=== PATIENT | female | born 1945 | race Caucasian/White ===

== ENCOUNTER 2020-06-15 21:44 | Inpatient (IN) | payer SELFPAY ==
[~2020-06-15] VITALS: Ht 149.9 cm; Wt 50.9 kg
[2020-06-15 21:54] VITALS: Ht 149.9 cm; Wt 50.9 kg
[2020-06-16 05:12] LABS: ALKALINE PHOSPHATASE 155 U/L (46-116); ALT/SGPT 168 U/L (14-59); AMYLASE 70 U/L (25-115); AST/SGOT 242 U/L (15-37); BILIRUBIN TOTAL 1.16 mg/dL (0.20-1.00); CALCIUM 7.9 mg/dL (8.5-10.1); CARBON DIOXIDE 13.8 mmol/L (21-32); CHLORIDE SERUM 102 mmol/L (98-107); GLUCOSE SERUM 78 mg/dL (74-106); LIPASE 57 IU/L (73-393); SODIUM SERUM 135 mmol/L (136-145); TOTAL PROTEIN, SERUM 7.5 g/dL (6.4-8.2)
[2020-06-16 05:13] LABS: ALBUMIN 2.9 g/dL (3.4-5.0)
[2020-06-16 05:14] LABS: POTASSIUM SERUM 6.9 mmol/L (3.5-5.1)
[2020-06-16 05:15] LABS: CREATININE SERUM 4.6 mg/dL (0.6-1.0)
[2020-06-16 05:39] LABS: BASOPHIL % 0.1 % (0.2-1.3)
[2020-06-16 05:40] LABS: PLATELET COUNT 79 x10^3mcL (179-408); RED CELL DISTRIBUTION WIDTH 15.2 % (12.3-17.7)
[2020-06-16 05:59] LABS: UA SPECIFIC GRAVITY >=1.030 (1.005-1.035); microscopic required? YES; urine erythrocyte 3+ (NEGATIVE)
[2020-06-16] MEDS ORDERED: METFORMIN850 M1 PO (06:58)
[2020-06-16] MEDS ORDERED: LOSARTAN POTASS50 M1 PO (06:58)
[2020-06-16 11:47] LABS: CARBON DIOXIDE 10.9 mmol/L (21-32); CHLORIDE SERUM 118 mmol/L (98-107); CREATININE SERUM 2.9 mg/dL (0.6-1.0); SODIUM SERUM 146 mmol/L (136-145)
[2020-06-16 11:52] LABS: CALCIUM 5.1 mg/dL (8.5-10.1); GLUCOSE SERUM 54 mg/dL (74-106)
[2020-06-16 16:44] LABS: FREE T4 1.36 ng/dL (0.76-1.46); FREE THYROXINE INDEX 1.9 ug/dL (1.4-4.5); T4(THYROXINE) 4.9 ug/dL (4.7-13.3)
[2020-06-16 17:40] LABS: CHOLESTEROL/HDL RATIO 7.8
[2020-06-16 20:19] LABS: T3 TOTAL 0.52 ng/mL
[2020-06-17 02:54] VITALS: BP 108/44
[2020-06-17 04:20] VITALS: BP 111/44
[2020-06-17 08:28] VITALS: BP 136/58
[2020-06-17 08:38] LABS: CALCIUM 7.4 mg/dL (8.5-10.1); CARBON DIOXIDE 17.2 mmol/L (21-32); CHLORIDE SERUM 107 mmol/L (98-107); GLUCOSE SERUM 183 mg/dL (74-106); MAGNESIUM 1.6 mg/dL (1.8-2.4); POTASSIUM SERUM 5.4 mmol/L (3.5-5.1); SODIUM SERUM 142 mmol/L (136-145)
[2020-06-17 09:26] LABS: CREATININE SERUM 4.7 mg/dL (0.6-1.0)
[2020-06-17 10:40] LABS: RED CELL DISTRIBUTION WIDTH 14.9 % (12.3-17.7)
[2020-06-17 10:41] LABS: PLATELET COUNT 38 x10^3mcL (179-408)
[2020-06-17 12:00] VITALS: BP 127/60
[2020-06-17 13:24] LABS: BAND NEUTROPHIL 16 % (0-10); METAMYELOCTE 21 % (0-2); MONOCYTE 20 % (0-7); MYELOCYTE 2 % (0-2); SEGMENTED NEUTROPHILS 36 % (37-75); rbc morphology (normal/abnorm) ABNORMAL (NORMAL)
[2020-06-17 13:25] LABS: PLATELET MORPHOLOGY PLATELETS DECREASED
[2020-06-17 16:20] VITALS: BP 150/99
[2020-06-17 21:36] VITALS: BP 98/57
[2020-06-18 05:28] VITALS: BP 114/52
[2020-06-18 08:37] LABS: CALCIUM 7.9 mg/dL (8.5-10.1); CHLORIDE SERUM 107 mmol/L (98-107); GLUCOSE SERUM 116 mg/dL (74-106); SODIUM SERUM 146 mmol/L (136-145)
[2020-06-18 08:55] VITALS: BP 108/54
[2020-06-18 09:53] LABS: PLATELET COUNT 26 x10^3mcL (179-408); RED CELL DISTRIBUTION WIDTH 14.7 % (12.3-17.7)
[2020-06-18 13:24] VITALS: BP 111/59
[2020-06-18 16:45] VITALS: BP 118/61
[2020-06-18 18:04] LABS: BAND NEUTROPHIL 10 % (0-10); BASOPHIL 0 % (0-2); MONOCYTE 2 % (0-7); SEGMENTED NEUTROPHILS 86 % (37-75)
[2020-06-18 18:06] LABS: rbc morphology (normal/abnorm) NORMAL (NORMAL)
[2020-06-18 21:41] VITALS: BP 135/52
[2020-06-19 06:27] VITALS: BP 160/63
[2020-06-19 07:33] LABS: CALCIUM 8.7 mg/dL (8.5-10.1); CARBON DIOXIDE 21.6 mmol/L (21-32); CHLORIDE SERUM 104 mmol/L (98-107); GLUCOSE SERUM 63 mg/dL (74-106); POTASSIUM SERUM 4.8 mmol/L (3.5-5.1); SODIUM SERUM 143 mmol/L (136-145)
[2020-06-19 07:34] LABS: MAGNESIUM 2.4 mg/dL (1.8-2.4); PHOSPHOROUS 4.3 mg/dL (2.5-4.9)
[2020-06-19 07:37] LABS: CREATININE SERUM 4.8 mg/dL (0.6-1.0)
[2020-06-19 08:16] VITALS: BP 121/56
[2020-06-19 08:17] LABS: RED CELL DISTRIBUTION WIDTH 14.9 % (12.3-17.7)
[2020-06-19 08:18] LABS: PLATELET COUNT 17 x10^3mcL (179-408)
[2020-06-19 12:15] VITALS: BP 122/50
[2020-06-19 16:33] LABS: BAND NEUTROPHIL 20 % (0-10); BASOPHIL 0 % (0-2); SEGMENTED NEUTROPHILS 77 % (37-75)
[2020-06-19 16:34] LABS: PLATELET MORPHOLOGY PLATELETS DECREASED; rbc morphology (normal/abnorm) NORMAL (NORMAL)
[2020-06-19 16:42] VITALS: BP 131/51
[2020-06-19 22:12] VITALS: BP 116/52
[2020-06-20 06:12] VITALS: BP 121/61
[2020-06-20 06:16] VITALS: BP 108/52
[2020-06-20 08:45] VITALS: BP 130/57
[2020-06-20 09:02] LABS: CALCIUM 8.1 mg/dL (8.5-10.1); CARBON DIOXIDE 22.6 mmol/L (21-32); CHLORIDE SERUM 97 mmol/L (98-107); GLUCOSE SERUM 94 mg/dL (74-106); POTASSIUM SERUM 4.3 mmol/L (3.5-5.1); SODIUM SERUM 134 mmol/L (136-145)
[2020-06-20 09:38] LABS: CREATININE SERUM 4.8 mg/dL (0.6-1.0)
[2020-06-20 11:51] LABS: RED CELL DISTRIBUTION WIDTH 14.6 % (12.3-17.7)
[2020-06-20 11:52] LABS: PLATELET COUNT 24 x10^3mcL (179-408)
[2020-06-20 12:26] VITALS: BP 101/46
[2020-06-20 15:50] LABS: BAND NEUTROPHIL 3 % (0-10); BASOPHIL 0 % (0-2); MONOCYTE 2 % (0-7); SEGMENTED NEUTROPHILS 92 % (37-75); rbc morphology (normal/abnorm) ABNORMAL (NORMAL)
[2020-06-20 16:19] VITALS: BP 116/52
[2020-06-20 21:11] VITALS: BP 143/64
[2020-06-21 06:45] VITALS: BP 161/85
[2020-06-21 08:39] VITALS: BP 170/79
[2020-06-21 10:27] LABS: RED CELL DISTRIBUTION WIDTH 14.5 % (12.3-17.7)
[2020-06-21 10:35] LABS: CALCIUM 7.7 mg/dL (8.5-10.1); CARBON DIOXIDE 21.9 mmol/L (21-32); CHLORIDE SERUM 97 mmol/L (98-107); GLUCOSE SERUM 102 mg/dL (74-106); SODIUM SERUM 135 mmol/L (136-145)
[2020-06-21 10:40] LABS: PLATELET COUNT 58 x10^3mcL (179-408)
[2020-06-21 10:41] LABS: CREATININE SERUM 4.9 mg/dL (0.6-1.0)
[2020-06-21 10:57] VITALS: BP 151/71
[2020-06-21 11:03] LABS: BILIRUBIN DIRECT 0.65 mg/dL (0.0-0.2); BILIRUBIN TOTAL 1.1 mg/dL (0.20-1.00)
[2020-06-21 11:11] LABS: ALBUMIN 1.7 g/dL (3.4-5.0); TOTAL PROTEIN, SERUM 5.1 g/dL (6.4-8.2)
[2020-06-21 13:46] LABS: BAND NEUTROPHIL 3 % (0-10); MONOCYTE 3 % (0-7); PLATELET MORPHOLOGY PLATELETS DECREASED; SEGMENTED NEUTROPHILS 89 % (37-75); rbc morphology (normal/abnorm) ABNORMAL (NORMAL)
[2020-06-21 21:51] VITALS: BP 107/54
[2020-06-22 06:38] VITALS: BP 117/61
[2020-06-22 07:52] LABS: RED CELL DISTRIBUTION WIDTH 14.6 % (12.3-17.7)
[2020-06-22 07:56] LABS: PLATELET COUNT 49 x10^3mcL (179-408)
[2020-06-22 08:54] VITALS: BP 126/45
[2020-06-22 08:54] LABS: CALCIUM 7.3 mg/dL (8.5-10.1); CARBON DIOXIDE 21.2 mmol/L (21-32); CHLORIDE SERUM 100 mmol/L (98-107); GLUCOSE SERUM 75 mg/dL (74-106); PHOSPHOROUS 6.8 mg/dL (2.5-4.9); POTASSIUM SERUM 4.1 mmol/L (3.5-5.1); SODIUM SERUM 140 mmol/L (136-145)
[2020-06-22 08:58] LABS: CREATININE SERUM 5.1 mg/dL (0.6-1.0)
[2020-06-22 12:39] VITALS: BP 118/49
[2020-06-22 12:49] LABS: BAND NEUTROPHIL 6 % (0-10); METAMYELOCTE 1 % (0-2); MONOCYTE 3 % (0-7); SEGMENTED NEUTROPHILS 85 % (37-75); rbc morphology (normal/abnorm) ABNORMAL (NORMAL)
[2020-06-22 12:50] LABS: PLATELET MORPHOLOGY PLATELETS DECREASED
[2020-06-22 17:11] VITALS: BP 95/44
[2020-06-22 21:10] VITALS: BP 122/47
[2020-06-23 05:13] VITALS: BP 114/42
[2020-06-23 08:34] VITALS: BP 150/57
[2020-06-23 09:07] LABS: CALCIUM 7.5 mg/dL (8.5-10.1); CARBON DIOXIDE 27.4 mmol/L (21-32); CHLORIDE SERUM 101 mmol/L (98-107); CREATININE SERUM 3.5 mg/dL (0.6-1.0); GLUCOSE SERUM 89 mg/dL (74-106); POTASSIUM SERUM 3.2 mmol/L (3.5-5.1); SODIUM SERUM 139 mmol/L (136-145)
[2020-06-23 10:56] LABS: BASOPHIL % 0.1 % (0.2-1.3)
[2020-06-23 10:58] LABS: RED CELL DISTRIBUTION WIDTH 14.5 % (12.3-17.7)
[2020-06-23 11:30] LABS: PLATELET COUNT 49 x10^3mcL (179-408)
[2020-06-23 12:51] VITALS: BP 131/51
[2020-06-23 16:39] VITALS: BP 140/51
[2020-06-23 21:07] VITALS: BP 123/39
[2020-06-24 06:10] VITALS: BP 104/44
[2020-06-24 08:18] LABS: BASOPHIL % 0.2 % (0.2-1.3); RED CELL DISTRIBUTION WIDTH 14.5 % (12.3-17.7)
[2020-06-24 08:36] LABS: CALCIUM 7.2 mg/dL (8.5-10.1); CHLORIDE SERUM 99 mmol/L (98-107); CREATININE SERUM 2.7 mg/dL (0.6-1.0); GLUCOSE SERUM 74 mg/dL (74-106); SODIUM SERUM 135 mmol/L (136-145)
[2020-06-24 08:52] VITALS: BP 122/77
[2020-06-24 09:07] LABS: PLATELET COUNT 46 x10^3mcL (179-408)
[2020-06-24 09:24] LABS: POTASSIUM SERUM 2.9 mmol/L (3.5-5.1)
[2020-06-24 12:02] VITALS: BP 103/59
[2020-06-24 17:05] VITALS: BP 132/44
[2020-06-24 21:03] VITALS: BP 121/42
[2020-06-25 05:20] VITALS: BP 119/47
[2020-06-25 07:50] LABS: BASOPHIL % 0.3 % (0.2-1.3); RED CELL DISTRIBUTION WIDTH 14.5 % (12.3-17.7)
[2020-06-25 08:37] VITALS: BP 131/47
[2020-06-25 08:37] LABS: PLATELET COUNT 67 x10^3mcL (179-408)
[2020-06-25 08:45] LABS: CALCIUM 6.9 mg/dL (8.5-10.1); CARBON DIOXIDE 27.1 mmol/L (21-32); CHLORIDE SERUM 107 mmol/L (98-107); CREATININE SERUM 3.4 mg/dL (0.6-1.0); GLUCOSE SERUM 69 mg/dL (74-106); POTASSIUM SERUM 3.1 mmol/L (3.5-5.1); SODIUM SERUM 146 mmol/L (136-145)
[2020-06-25 12:26] VITALS: BP 137/49
[2020-06-25 16:44] VITALS: BP 132/50
[2020-06-25 20:58] VITALS: BP 115/43
[2020-06-26 05:37] VITALS: BP 146/75
[2020-06-26 08:40] VITALS: BP 141/52
[2020-06-26 10:04] LABS: BASOPHIL % 0.2 % (0.2-1.3); RED CELL DISTRIBUTION WIDTH 14.1 % (12.3-17.7)
[2020-06-26 10:08] LABS: PLATELET COUNT 92 x10^3mcL (179-408)
[2020-06-26 10:12] LABS: CARBON DIOXIDE 29.7 mmol/L (21-32); CHLORIDE SERUM 99 mmol/L (98-107); CREATININE SERUM 2.7 mg/dL (0.6-1.0); GLUCOSE SERUM 78 mg/dL (74-106); SODIUM SERUM 135 mmol/L (136-145)
[2020-06-26 12:39] VITALS: BP 131/51
[2020-06-26 16:16] VITALS: BP 132/47
[2020-06-26 20:23] VITALS: BP 137/50
[2020-06-27 05:33] VITALS: BP 122/50
[2020-06-27 07:43] LABS: BASOPHIL % 0.3 % (0.2-1.3); RED CELL DISTRIBUTION WIDTH 14.4 % (12.3-17.7)
[2020-06-27 08:18] LABS: CARBON DIOXIDE 26.5 mmol/L (21-32); CHLORIDE SERUM 106 mmol/L (98-107); CREATININE SERUM 2.9 mg/dL (0.6-1.0); GLUCOSE SERUM 62 mg/dL (74-106); POTASSIUM SERUM 3.7 mmol/L (3.5-5.1); SODIUM SERUM 142 mmol/L (136-145)
[2020-06-27 08:43] LABS: PLATELET COUNT 125 x10^3mcL (179-408)
[2020-06-27 09:30] VITALS: BP 128/38
[2020-06-27 12:19] VITALS: BP 118/73
[2020-06-27 17:14] VITALS: BP 160/42
[2020-06-27 21:37] VITALS: BP 150/53
[2020-06-28 05:58] VITALS: BP 149/50
[2020-06-28 07:32] LABS: BASOPHIL % 0.7 % (0.2-1.3); PLATELET COUNT 175 x10^3mcL (179-408)
[2020-06-28 08:00] LABS: CALCIUM 7.4 mg/dL (8.5-10.1); CHLORIDE SERUM 106 mmol/L (98-107); CREATININE SERUM 2.9 mg/dL (0.6-1.0); GLUCOSE SERUM 58 mg/dL (74-106); POTASSIUM SERUM 3.6 mmol/L (3.5-5.1); SODIUM SERUM 141 mmol/L (136-145)
[2020-06-28 08:52] VITALS: BP 146/56
[2020-06-28 12:54] VITALS: BP 137/59
[2020-06-28 16:29] VITALS: BP 140/57
[2020-06-28 20:44] VITALS: BP 133/46
[2020-06-29 05:11] VITALS: BP 134/46
[2020-06-29 07:45] LABS: BASOPHIL % 0.9 % (0.2-1.3); PLATELET COUNT 177 x10^3mcL (179-408); RED CELL DISTRIBUTION WIDTH 14.2 % (12.3-17.7)
[2020-06-29 08:34] LABS: CALCIUM 7.2 mg/dL (8.5-10.1); CHLORIDE SERUM 109 mmol/L (98-107); CREATININE SERUM 2.8 mg/dL (0.6-1.0); GLUCOSE SERUM 68 mg/dL (74-106); MAGNESIUM 1.4 mg/dL (1.8-2.4); PHOSPHOROUS 3.4 mg/dL (2.5-4.9); POTASSIUM SERUM 3.6 mmol/L (3.5-5.1); SODIUM SERUM 143 mmol/L (136-145)
[2020-06-29 08:56] VITALS: BP 136/44
[2020-06-29 13:12] VITALS: BP 137/48
[2020-06-29 17:24] VITALS: BP 152/53
[2020-06-29 20:50] VITALS: BP 134/42
[2020-06-30 05:30] VITALS: BP 145/48
[2020-06-30 08:05] LABS: BASOPHIL % 0.9 % (0.2-1.3); PLATELET COUNT 208 x10^3mcL (179-408); RED CELL DISTRIBUTION WIDTH 14.4 % (12.3-17.7)
[2020-06-30 08:28] LABS: CALCIUM 7.6 mg/dL (8.5-10.1); CARBON DIOXIDE 24.8 mmol/L (21-32); CHLORIDE SERUM 108 mmol/L (98-107); CREATININE SERUM 2.5 mg/dL (0.6-1.0); GLUCOSE SERUM 66 mg/dL (74-106); POTASSIUM SERUM 3.6 mmol/L (3.5-5.1); SODIUM SERUM 142 mmol/L (136-145)
[2020-06-30 08:45] VITALS: BP 143/51
[2020-06-30 11:56] VITALS: BP 147/57
[2020-06-30 15:27] VITALS: BP 159/54
[2020-06-30 20:45] VITALS: BP 153/54
[2020-07-01 05:05] VITALS: BP 159/54
[2020-07-01 07:23] LABS: PLATELET COUNT 237 x10^3mcL (179-408); RED CELL DISTRIBUTION WIDTH 14.2 % (12.3-17.7)
[2020-07-01 09:53] LABS: CALCIUM 7.7 mg/dL (8.5-10.1); CARBON DIOXIDE 22.7 mmol/L (21-32); CHLORIDE SERUM 107 mmol/L (98-107); CREATININE SERUM 2.3 mg/dL (0.6-1.0); GLUCOSE SERUM 60 mg/dL (74-106); POTASSIUM SERUM 3.8 mmol/L (3.5-5.1); SODIUM SERUM 138 mmol/L (136-145)
[2020-07-01 10:00] VITALS: BP 122/65
[2020-07-01 12:02] VITALS: BP 129/43
[2020-07-01 17:15] VITALS: BP 151/53
[2020-07-01 20:54] VITALS: BP 153/55
[2020-07-02 06:12] VITALS: BP 155/52
[2020-07-02 06:12] LABS: BASOPHIL % 0.9 % (0.2-1.3); PLATELET COUNT 241 x10^3mcL (179-408); RED CELL DISTRIBUTION WIDTH 14.5 % (12.3-17.7)
[2020-07-02 06:14] LABS: CALCIUM 7.3 mg/dL (8.5-10.1); CARBON DIOXIDE 23.6 mmol/L (21-32); CHLORIDE SERUM 109 mmol/L (98-107); CREATININE SERUM 2.1 mg/dL (0.6-1.0); GLUCOSE SERUM 68 mg/dL (74-106); POTASSIUM SERUM 3.7 mmol/L (3.5-5.1); SODIUM SERUM 141 mmol/L (136-145)
[2020-07-02 09:46] VITALS: BP 161/44
[2020-07-02 12:42] VITALS: BP 106/39
[2020-07-02 17:38] VITALS: BP 160/69
[2020-07-02 20:10] VITALS: BP 144/54
[2020-07-03 05:10] VITALS: BP 130/37
[2020-07-03 07:32] LABS: BASOPHIL % 0.9 % (0.2-1.3); PLATELET COUNT 228 x10^3mcL (179-408)
[2020-07-03 07:41] LABS: RED CELL DISTRIBUTION WIDTH 14.7 % (12.3-17.7)
[2020-07-03 07:42] LABS: CALCIUM 7.3 mg/dL (8.5-10.1); CARBON DIOXIDE 22.5 mmol/L (21-32); CHLORIDE SERUM 110 mmol/L (98-107); CREATININE SERUM 2.1 mg/dL (0.6-1.0); GLUCOSE SERUM 136 mg/dL (74-106); POTASSIUM SERUM 3.5 mmol/L (3.5-5.1); SODIUM SERUM 141 mmol/L (136-145)
[2020-07-03 09:24] VITALS: BP 150/41
[2020-07-03 10:14] VITALS: BP 150/41
[2020-07-03 10:22] VITALS: BP 150/41
== END 2020-07-03 12:06 | disposition home or self-care (01) | DRG 177 ==
LOC: ED 21:44 → MU 06-16 06:09 → DU 06-16 06:09 → MU 06-17 02:16
PROVIDERS: Internal Medicine; Internal Medicine Gastroenterology; Internal Medicine Nephrology; Specialist; ADMIT Family Medicine; ATTEND Family Medicine
PROC: 30233R1 Transfusion of Nonautologous Platelets into Peripheral Vein, Percutaneous Approach (ICD-10-PCS; 2020-06-20)
PROC: 02HV33Z Insertion of Infusion Device into Superior Vena Cava, Percutaneous Approach (ICD-10-PCS; principal; 2020-06-22)
PROC: B548ZZA Ultrasonography of Superior Vena Cava, Guidance (ICD-10-PCS; 2020-06-22)
PROC: 5A1D70Z Performance of Urinary Filtration, Intermittent, Less than 6 Hours Per Day (ICD-10-PCS; 2020-06-22)
PROC: 5A1D70Z Performance of Urinary Filtration, Intermittent, Less than 6 Hours Per Day (ICD-10-PCS; 2020-06-23)
PROC: 02H633Z Insertion of Infusion Device into Right Atrium, Percutaneous Approach (ICD-10-PCS; 2020-06-23)
PROC: 30233K1 Transfusion of Nonautologous Frozen Plasma into Peripheral Vein, Percutaneous Approach (ICD-10-PCS; 2020-06-24)
PROC: 30233N1 Transfusion of Nonautologous Red Blood Cells into Peripheral Vein, Percutaneous Approach (ICD-10-PCS; 2020-06-24)
PROC: 5A1D70Z Performance of Urinary Filtration, Intermittent, Less than 6 Hours Per Day (ICD-10-PCS; 2020-06-25)
DX: U07.1 COVID-19 (principal); N17.0 Acute kidney failure with tubular necrosis; J12.82 Pneumonia due to coronavirus disease 2019; N39.0 Urinary tract infection, site not specified; N13.6 Pyonephrosis; R10.9 Unspecified abdominal pain; H54.8 Legal blindness, as defined in USA; E87.5 Hyperkalemia; E11.9 Type 2 diabetes mellitus without complications; N18.9 Chronic kidney disease, unspecified; I51.7 Cardiomegaly; B96.20 Unspecified Escherichia coli [E. coli] as the cause of diseases classified elsewhere; I12.9 Hypertensive chronic kidney disease with stage 1 through stage 4 chronic kidney disease, or unspecified chronic kidney disease; Z90.49 Acquired absence of other specified parts of digestive tract; Z88.0 Allergy status to penicillin; Z79.899 Other long term (current) drug therapy; Z79.84 Long term (current) use of oral hypoglycemic drugs; Z79.891 Long term (current) use of opiate analgesic; Z79.01 Long term (current) use of anticoagulants
CPT/HCPCS: 82962; 83880; 84439; 86580; 87046; 87046-59; 97110-GP; 97116-GP; 97530-GP; C9113; G0378; J0696; J0885-EC; J1644; J1815; J1956; J2001; J2060; J2185; J2250; J2270; J2405; J3010; J3475; J3480; J3490; J7030; J7040; J7050; P9016; P9035; P9059; Q9967; U0003